=== PATIENT | female | born 1950 | race Caucasian/White ===

== ENCOUNTER 2018-04-11 15:53 | Inpatient (IN) | payer OTHER ==
[~2018-04-11] VITALS: Ht 157.5 cm; Wt 101.2 kg
--- NOTE | 2018-04-11 16:00 | NUR ---
in room being triaged. patient is converasant but expressed depression and has suicidal thoughts.
[2018-04-11 16:38] LABS: BASOPHILS % (AUTO) 0.3 % (0.0-2.0); EOSINOPHILS # (AUTO) 0.3 K/uL (0.0-0.7); EOSINOPHILS % (AUTO) 3.7 % (0.0-7.0); HEMATOCRIT 38.5 % (31.2-41.9); HEMOGLOBIN 12.7 g/dL (10.9-14.3); LYMPHOCYTES # (AUTO) 1.5 K/uL (20.0-40.0); LYMPHOCYTES % (AUTO) 15.9 % (20.5-51.5); MEAN CORPUSCULAR HEMOGLOBIN 29.2 uug (24.7-32.8); MEAN CORPUSCULAR HGB CONC 33 g/dL (32.3-35.6); MEAN CORPUSCULAR VOLUME 88.2 fL (75.5-95.3); MONOCYTES # (AUTO) 0.8 K/uL (2.0-10.0); MONOCYTES % (AUTO) 8.3 % (0.0-11.0); NEUTROPHILS # (AUTO) 6.7 K/uL (1.8-8.9); NEUTROPHILS % (AUTO) 71.8 % (38.5-71.5); PLATELET COUNT (AUTO) 222 K/uL (179-408); RED BLOOD CELL COUNT(AUTO) 4.36 MIL/uL (3.63-4.92); WHITE BLOOD COUNT (AUTO) 9.4 K/uL (3.8-11.8)
[2018-04-11 16:45] LABS: ETHANOL < 3 MG/DL (0-0)
[2018-04-11 16:49] LABS: ALANINE AMINOTRANSFERASE 17 U/L (14-59); ALKALINE PHOSPHATASE 85 U/L (50-136); ASPARTATE AMINOTRANSFERASE 11 U/L (15-37); BILIRUBIN,DIRECT < 0.1 mg/dL (0.0-0.2); BILIRUBIN,TOTAL 0.2 mg/dL (0.2-1.0); CARBON DIOXIDE 28 mmol/L (21-32); CHLORIDE 104 mmol/L (98-107); CREATININE 0.7 mg/dL (0.6-1.3); GLUCOSE 124 mg/dL (74-106); POTASSIUM 4.4 mmol/L (3.5-5.1); TOTAL PROTEIN, SERUM 7.2 g/dL (6.4-8.2); UREA NITROGEN, BLOOD 17 mg/dL (7-18)
[2018-04-11 16:51] LABS: ACETAMINOPHEN < 2.0 ug/mL (10-30)
[2018-04-11] MEDS ORDERED: LORAZEPAM 0.5 MG TABLET PO ONE (18:15)
--- NOTE | 2018-04-11 18:47 | NUR ---
ativan given, dinner served
[2018-04-11] MEDS ORDERED: LORAZEPAM 0.5 MG TABLET ONE (18:50)
--- NOTE | 2018-04-11 19:11 | NUR ---
report given to Norman
--- NOTE | 2018-04-11 20:05 | NUR ---
Pt provided urine, sent to lab.
[2018-04-11] MEDS ORDERED: SULF15DR6 EACHEYE (20:21)
[2018-04-11] MEDS ORDERED: INSU100V7 SQ (20:21)
[2018-04-11] MEDS ORDERED: ALBU18HF2 IH (20:21)
[2018-04-11] MEDS ORDERED: BUPR300T52 PO (20:21)
[2018-04-11] MEDS ORDERED: METF-440 PO (20:21)
[2018-04-11] MEDS ORDERED: GABA-534 PO (20:21)
[2018-04-11] MEDS ORDERED: BUSP5TAB3 PO (20:21)
[2018-04-11] MEDS ORDERED: ALBU8.5H8 IH (20:21)
[2018-04-11] MEDS ORDERED: QUET300T2 PO (20:21)
--- NOTE | 2018-04-11 20:27 | NUR ---
Report given to Cuco YUN MHU.
[2018-04-11 20:39] LABS: *BILIRUBIN,URIN NEGATIVE (NEGATIVE); *BLOOD, URINE Trace-intact (NEGATIVE); *CLARITY,URINE CLEAR (CLEAR); *COLOR,URINE YELLOW (YELLOW); *KETONES,URINE NEGATIVE (NEGATIVE); *PROTEIN,URINE NEGATIVE (NEGATIVE); *UROBILINOGEN,URINE 0.2 E.U./dl (NORMAL); LEUKOCYTE ESTERASE ,URINE NEGATIVE (NEGATIVE); NITRITE, URINE NEGATIVE (NEGATIVE); PH,URINE 7.5 (5.0-8.0); UGLUCOSE NEGATIVE (NEGATIVE)
[2018-04-11] MEDS ORDERED: ZOLPIDEM 5 MG TABLET PO PRN (20:45)
[2018-04-11] MEDS ORDERED: MAG HYDROX/AL HYDROX/SIMETH 30 ML LIQUID UDC PO PRN (20:45)
[2018-04-11] MEDS ORDERED: MORPHINE SULFATE 4 MG/1 ML DISP.SYRIN IM ONE (20:45)
[2018-04-11] MEDS ORDERED: MAGNESIUM HYDROXIDE 30 ML LIQUID UDC PO PRN (20:45)
[2018-04-11 20:47] LABS: *AMPHETAMINE, URINE NEGATIVE (NEGATIVE); *BARBITURATE, URINE NEGATIVE (NEGATIVE); *CANNABINOID, URINE NEGATIVE (NEGATIVE); *COCCAINE, URINE NEGATIVE (NEGATIVE); *OPIATE, URINE NEGATIVE (NEGATIVE); *PHENCYCLIDINE SCREEN,URINE NEGATIVE (NEGATIVE)
[2018-04-11] MEDS ORDERED: MORPHINE SULFATE 4 MG/1 ML DISP.SYRIN ONE (20:49)
[2018-04-11 20:53] LABS: BACTERIA,URINE NONE SEEN /HPF (NONE SEEN); RBC,URINE 0-3 /HPF (0-3); SQUAMOUS EPITHELIAL CELL,UR FEW /HPF (NONE SEEN); WBC,URINE 0-3 /HPF (0-3)
[2018-04-11] MEDS ORDERED: LORAZEPAM 0.5 MG TABLET PO PRN (21:00)
[2018-04-11] MEDS ORDERED: DEXTROSE 50% 50 ML DISP.SYRIN IV PRN (21:15)
[2018-04-11 22:17] VITALS: BP 150/67
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
[2018-04-12] MEDS: BLOOD SUGAR DIAGNOSTIC 1 EACH STRIP VI SCH ×4 (06:35→20:16)
[2018-04-12 07:28] LABS: CREATININE 0.7 mg/dL (0.6-1.3); MAGNESIUM 1.8 mg/dL (1.8-2.4); POTASSIUM 4.7 mmol/L (3.5-5.1)
[2018-04-12 07:30] VITALS: BP 115/63
[2018-04-12] MEDS: GABAPENTIN 300 MG CAPSULE PO SCH ×3 (08:47→17:38)
[2018-04-12] MEDS: METFORMIN HCL 500 MG TABLET PO SCH ×2 (08:47→17:38)
[2018-04-12] MEDS: buPROPion XL 150 MG TAB.SR.24H PO SCH (10:12)
[2018-04-12] MEDS: SULFACETAMIDE SOD 10% OPHT DR 15 ML BOTTLE EACHEYE SCH ×3 (10:12→17:38)
[2018-04-12] MEDS: busPIRone 5 MG TABLET PO SCH ×3 (10:12→17:38)
[2018-04-12 10:14] LABS: THYROID STIMULATING HORMONE 2.976 mIU/mL (0.358-3.740)
--- NOTE | 2018-04-12 15:52 | NUR ---
Firearms Report: Founder & Ceo completed and submitted [employer] Firearms Report on 04/12/18 for 5150 DTS certification.
[2018-04-12 17:24] VITALS: BP_SYST 144; BP_SYST 148; BP_DIAS 64; BP_DIAS 87
[2018-04-12 20:05] VITALS: BP 119/64
[2018-04-12] MEDS: QUETIAPINE FUMARATE 100 MG TABLET PO SCH (20:06)
[2018-04-13] MEDS: BLOOD SUGAR DIAGNOSTIC 1 EACH STRIP VI SCH ×4 (06:37→22:19)
[2018-04-13 07:30] VITALS: BP 104/57
[2018-04-13] MEDS ORDERED: busPIRone 10 MG TABLET PO SCH (09:00)
[2018-04-13] MEDS ORDERED: busPIRone 5 MG TABLET PO SCH (09:00)
[2018-04-13] MEDS: buPROPion XL 150 MG TAB.SR.24H PO SCH (09:04)
[2018-04-13] MEDS: METFORMIN HCL 500 MG TABLET PO SCH ×2 (09:04→17:58)
[2018-04-13] MEDS: GABAPENTIN 300 MG CAPSULE PO SCH ×3 (09:04→17:57)
[2018-04-13] MEDS: SULFACETAMIDE SOD 10% OPHT DR 15 ML BOTTLE EACHEYE SCH ×3 (09:05→17:59)
[2018-04-13] MEDS ORDERED: busPIRone 10 MG TABLET ONE ×2 (09:23→13:18)
--- NOTE | 2018-04-13 10:53 | NUR ---
UR Note: PRASHANTH left clinicals over the phone to assigned [facility] Human Resources Trainer, Lois (ph. [phone]). Policy #[id number]. Awaiting authorization. PRASHANTH will continue to follow-up. Addendum: 04/13/18 at 1606 by ALME REINA Received return call from Lois at [facility]. Patient authorized 4 days (04/11-04/14) with review due on 04/15. AUTH#[id number]. PRASHANTH will continue to follow-up.
--- NOTE | 2018-04-13 11:18 | NUR ---
Initial Discharge Instructions: Patient currently resides in a Condo with a caregiver, "Love" [[address], [place] [address]; [phone]]. Love's phone number is that which is listed above; however, patient did not provide consent for SS to speak with Love. Patient reports that she would like to return to the condo upon discharge. Spoke with patient's daughter/DPOA, Apolonia Hammond ([phone]) who confirmed that the patient is living with Love. SW will continue to collaborate with pt, family, and MD to discuss most appropriate discharge plans for this patient. SW will form a safe and proper discharge.
--- NOTE | 2018-04-13 11:19 | NUR ---
Rn Stars Note: Received email from patient's dtr, Apolonia ([phone]), and was provided with DPOA paperwork. Placed copy in paper chart.
[2018-04-13] MEDS: ACETAMINOPHEN 325 MG TABLET PO PRN ×2 (14:12→23:26)
[2018-04-13] MEDS ORDERED: ACETAMINOPHEN 325 MG TABLET ONE (14:13)
[2018-04-13 16:12] VITALS: BP 113/60
[2018-04-13] MEDS: busPIRone 10 MG TABLET PO SCH (17:59)
[2018-04-13 19:33] VITALS: BP 111/52
[2018-04-13] MEDS: ASPIRIN/ACETAMINOPHEN/CAFFEINE TABLET PO PRN (22:14)
[2018-04-13] MEDS: QUETIAPINE FUMARATE 100 MG TABLET PO SCH (22:14)
[2018-04-13] MEDS: INSULIN REGULAR, HUMAN 300 UNIT/3 ML VIAL SQ PRN (22:27)
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
[2018-04-14] MEDS: BLOOD SUGAR DIAGNOSTIC 1 EACH STRIP VI SCH ×4 (07:00→20:24)
[2018-04-14 07:30] VITALS: BP 129/69
[2018-04-14] MEDS: METFORMIN HCL 500 MG TABLET PO SCH ×2 (09:19→17:39)
[2018-04-14] MEDS: SULFACETAMIDE SOD 10% OPHT DR 15 ML BOTTLE EACHEYE SCH ×3 (09:20→17:38)
[2018-04-14] MEDS: buPROPion XL 150 MG TAB.SR.24H PO SCH (09:20)
[2018-04-14] MEDS: busPIRone 10 MG TABLET PO SCH (09:20)
[2018-04-14] MEDS: GABAPENTIN 300 MG CAPSULE PO SCH ×3 (09:20→17:39)
[2018-04-14] MEDS: QUETIAPINE FUMARATE 25 MG TABLET PO SCH ×2 (13:08→17:40)
[2018-04-14] MEDS: HYDROCODONE/APAP 5-325MG TABLET PO PRN (14:11)
[2018-04-14] MEDS: HYDROXYZINE PAMOATE 25 MG CAPSULE PO PRN (14:13)
--- NOTE | 2018-04-14 19:40 | NUR ---
RECEIVED PATIENT IN HER ROOM. SHE IS NOTED AWAKE A/O X 2/3. SHE IS ABLE TO AMBULATE WITH A FWW AND ABLE TO MAKE HER NEEDS KNOWN. PATIENT NOTED WITH LOW MOOD, BLUNTED AFFECT, FAIR INSIGHT, SHE IS ABLE TO VERBALIZED FEELINGS. SHE DENIES SI. DENIES AH/VH. SHE IS ABLE TO CFS. SAFETY WAS EMPHASIS, BED AT LOWEST POSITION WITH WHEELS LOCKED, ALARM ON AND FREQUENT HEAD CHECKS. WILL CONTINUE TO MONITOR.
[2018-04-14 20:00] VITALS: BP 121/80
[2018-04-14] MEDS: QUETIAPINE FUMARATE 100 MG TABLET PO SCH (20:24)
[2018-04-15] MEDS: BLOOD SUGAR DIAGNOSTIC 1 EACH STRIP VI SCH ×4 (07:31→20:09)
[2018-04-15] MEDS: SULFACETAMIDE SOD 10% OPHT DR 15 ML BOTTLE EACHEYE SCH ×3 (08:18→16:32)
[2018-04-15] MEDS: METFORMIN HCL 500 MG TABLET PO SCH ×2 (08:18→17:34)
[2018-04-15] MEDS: GABAPENTIN 300 MG CAPSULE PO SCH ×3 (08:18→16:32)
[2018-04-15] MEDS: buPROPion XL 150 MG TAB.SR.24H PO SCH (08:19)
[2018-04-15] MEDS: QUETIAPINE FUMARATE 25 MG TABLET PO SCH ×3 (08:19→16:32)
[2018-04-15 08:37] VITALS: BP 115/65
[2018-04-15] MEDS: HYDROCODONE/APAP 5-325MG TABLET PO PRN ×2 (10:23→23:09)
--- NOTE | 2018-04-15 12:25 | NUR ---
UR Note: Left clinical review on voicemail of Yumiko at [employer] [phone]. Requested authorization through the weekend. Provided current meds., patient's behavior and psychiatry notes from Dr Alonso. Advised that this technical writer is just covering for Lynda today.
[2018-04-15 14:42] VITALS: BP 121/83
--- NOTE | 2018-04-15 14:53 | NUR ---
UR Note: Patient's stay was authorized until 04/18/18 by Yumiko [facility] [place] ([phone]) with a review due that day. Lynda is aware and will follow up. Ref no: [id number]
--- NOTE | 2018-04-15 19:20 | NUR ---
RECEIVED PATIENT IN HER ROOM. AWAKE A/O X 2/3. IN NO ACUTE DISTRESS. SHE IS ABLE TO AMBULATE WITH A FWW AND ABLE TO MAKE HER NEEDS KNOWN. PATIENT WITH LOW MOOD, BLUNTED AFFECT, FAIR INSIGHT, SHE IS ABLE TO VERBALIZED FEELINGS. SHE DENIES SI. DENIES AH/VH. SHE IS ABLE TO CFS. CALM AND COOPERATIVE WITH CARE. SAFETY MEASURE INITIATED.
[2018-04-15 20:00] VITALS: BP 118/65
[2018-04-15] MEDS: QUETIAPINE FUMARATE 100 MG TABLET PO SCH (20:03)
[2018-04-15 22:14] LABS: *BILIRUBIN,URIN NEGATIVE (NEGATIVE); *BLOOD, URINE NEGATIVE (NEGATIVE); *CLARITY,URINE CLEAR (CLEAR); *COLOR,URINE YELLOW (YELLOW); *KETONES,URINE NEGATIVE (NEGATIVE); *PROTEIN,URINE NEGATIVE (NEGATIVE); *UROBILINOGEN,URINE 0.2 E.U./dl (NORMAL); LEUKOCYTE ESTERASE ,URINE NEGATIVE (NEGATIVE); NITRITE, URINE NEGATIVE (NEGATIVE); UGLUCOSE NEGATIVE (NEGATIVE)
[2018-04-15 22:21] LABS: MUCUS,URINE FEW /LPF (0-FEW); SQUAMOUS EPITHELIAL CELL,UR MODERATE /HPF (NONE SEEN); WBC,URINE 0-3 /HPF (0-3)
--- NOTE | 2018-04-15 23:10 | NUR ---
Complained of pain on her head and right side of her face. Hydrocodone PRN per order given.
[2018-04-16] MEDS: HYDROXYZINE PAMOATE 25 MG CAPSULE PO PRN (01:34)
--- NOTE | 2018-04-16 01:34 | NUR ---
Patient restless, unable to sleep. Offered Vistaril and patient agreeable. Vistaril PRN per order given. Other needs attended to and met.
[2018-04-16] MEDS: BLOOD SUGAR DIAGNOSTIC 1 EACH STRIP VI SCH ×4 (06:33→20:17)
[2018-04-16] MEDS ORDERED: Z GUARD REMEDY PASTE 57 GM TUBE TOP PRN (06:45)
[2018-04-16 07:30] VITALS: BP 96/51
[2018-04-16] MEDS: GABAPENTIN 300 MG CAPSULE PO SCH ×3 (08:07→16:07)
[2018-04-16] MEDS: buPROPion XL 150 MG TAB.SR.24H PO SCH (08:07)
[2018-04-16] MEDS: QUETIAPINE FUMARATE 25 MG TABLET PO SCH ×3 (08:08→16:07)
[2018-04-16] MEDS: SULFACETAMIDE SOD 10% OPHT DR 15 ML BOTTLE EACHEYE SCH ×3 (08:08→16:06)
[2018-04-16] MEDS: METFORMIN HCL 500 MG TABLET PO SCH ×2 (08:08→17:26)
[2018-04-16] MEDS: INSULIN REGULAR, HUMAN 300 UNIT/3 ML VIAL SQ PRN ×3 (11:23→20:21)
[2018-04-16] MEDS: HYDROCODONE/APAP 5-325MG TABLET PO PRN ×2 (12:28→20:11)
[2018-04-16 15:34] VITALS: BP 96/51
--- NOTE | 2018-04-16 19:20 | NUR ---
RECEIVED PATIENT AMBULATING IN THE HALLWAY WITH FWW, WENT TO HER ROOM AND SAT ON HER BED. AOX 2-3. IN NO ACUTE DISTRESS. PATIENT VERBALIZED STILL FEELING DEPRESS AND HAVING LOW MOOD. FAIR INSIGHT, SHE IS ABLE TO VERBALIZED FEELINGS. SHE VAGUELY VERBALIZED THAT SHE STILL THINK OF COMMITTING SUICIDE. NO PLAN ON ACTUALLY DOING IT. SHE IS ABLE TO CFS. DENIES AH/VH. CALM AND COOPERATIVE WITH CARE. SAFETY MEASURE INITIATED. CONTINUE TO MONITOR.
[2018-04-16] MEDS: QUETIAPINE FUMARATE 100 MG TABLET PO SCH (20:10)
[2018-04-16 20:15] VITALS: BP 143/85
[2018-04-17] MEDS: BLOOD SUGAR DIAGNOSTIC 1 EACH STRIP VI SCH ×4 (06:35→20:38)
[2018-04-17 08:00] VITALS: BP 99/62
[2018-04-17] MEDS: GABAPENTIN 300 MG CAPSULE PO SCH ×3 (08:29→17:08)
[2018-04-17] MEDS: METFORMIN HCL 500 MG TABLET PO SCH ×2 (08:29→17:08)
[2018-04-17] MEDS: buPROPion XL 150 MG TAB.SR.24H PO SCH (08:29)
[2018-04-17] MEDS: QUETIAPINE FUMARATE 25 MG TABLET PO SCH ×3 (08:29→17:08)
[2018-04-17] MEDS: SULFACETAMIDE SOD 10% OPHT DR 15 ML BOTTLE EACHEYE SCH ×3 (08:30→17:08)
[2018-04-17] MEDS: HYDROCODONE/APAP 5-325MG TABLET PO PRN ×2 (08:37→15:31)
[2018-04-17 16:00] VITALS: BP 108/52
[2018-04-17] MEDS: INSULIN REGULAR, HUMAN 300 UNIT/3 ML VIAL SQ PRN (17:17)
[2018-04-17] MEDS: HYDROXYZINE PAMOATE 25 MG CAPSULE PO PRN (18:57)
[2018-04-17] MEDS: ASPIRIN/ACETAMINOPHEN/CAFFEINE TABLET PO PRN (18:57)
[2018-04-17 20:00] VITALS: BP 110/56
[2018-04-17] MEDS: QUETIAPINE FUMARATE 100 MG TABLET PO SCH (21:48)
--- NOTE | 2018-04-18 04:10 | NUR ---
Received to care, pt in bed talking to her roommate, pt state that she is in pain and has SOB, pt directed to sit up instead of laying down so much, pt complied with taking medication, pt refused tylenol and asked to receive 10/325 order of [place] instead of 5/325. Pt also requested that she receive albuterol for her asthma, copy writer informed her that I would pass the message along to day shift or MD. Pt went to sleep.
[2018-04-18 05:25] LABS: *BILIRUBIN,URIN NEGATIVE (NEGATIVE); *BLOOD, URINE NEGATIVE (NEGATIVE); *CLARITY,URINE CLEAR (CLEAR); *COLOR,URINE YELLOW (YELLOW); *KETONES,URINE NEGATIVE (NEGATIVE); *PROTEIN,URINE NEGATIVE (NEGATIVE); *UROBILINOGEN,URINE 0.2 E.U./dl (NORMAL); LEUKOCYTE ESTERASE ,URINE NEGATIVE (NEGATIVE); NITRITE, URINE NEGATIVE (NEGATIVE); PH,URINE 5.5 (5.0-8.0); UGLUCOSE NEGATIVE (NEGATIVE)
[2018-04-18 05:42] LABS: BACTERIA,URINE NONE SEEN /HPF (NONE SEEN); RBC,URINE NONE SEEN /HPF (0-3); SQUAMOUS EPITHELIAL CELL,UR FEW /HPF (NONE SEEN); WBC,URINE 0-3 /HPF (0-3)
[2018-04-18] MEDS: BLOOD SUGAR DIAGNOSTIC 1 EACH STRIP VI SCH ×2 (06:54→11:55)
[2018-04-18 07:30] VITALS: BP 131/63
[2018-04-18] MEDS ORDERED: IBUPROFEN 200 MG TABLET PO PRN (09:00)
[2018-04-18] MEDS: buPROPion XL 150 MG TAB.SR.24H PO SCH (09:38)
[2018-04-18] MEDS: METFORMIN HCL 500 MG TABLET PO SCH ×2 (09:38→17:24)
[2018-04-18] MEDS: GABAPENTIN 300 MG CAPSULE PO SCH ×4 (09:38→20:46)
[2018-04-18] MEDS: SULFACETAMIDE SOD 10% OPHT DR 15 ML BOTTLE EACHEYE SCH ×3 (09:38→17:24)
[2018-04-18] MEDS: QUETIAPINE FUMARATE 25 MG TABLET PO SCH ×3 (09:39→17:24)
--- NOTE | 2018-04-18 10:15 | NUR ---
UR Note: SW left clinicals over voicemail to [employer] CounselorLois (ph [phone]). Requested further authorization for stay. Requested information regarding SNF placement as well (Per Dr. Alonso's recommendations). AUTH#[id number]. Awaiting authorization. SW will continue to follow-up. Addendum: 04/18/18 at 1305 by ALEM REINA Received call from [employer] CounselorLois. Patient authorized 3 additional days (04/18-04/20) with review due on 04/21. Per Lois, this brief writer was instructed to callDanielle in the Transitional Care Department ([phone]) for SNF auth. Spoke with Danielle who will reach out to her team to start SNF authorization process. PRASHANTH will continue to follow-up.
[2018-04-18] MEDS: INSULIN REGULAR, HUMAN 300 UNIT/3 ML VIAL SQ PRN (11:55)
[2018-04-18] MEDS ORDERED: INSULIN REGULAR, HUMAN 300 UNIT/3 ML VIAL SQ PRN (14:30)
[2018-04-18] MEDS: ACETAMINOPHEN 325 MG TABLET PO PRN (15:18)
[2018-04-18 16:35] VITALS: BP 101/48
[2018-04-18] MEDS: HYDROXYZINE PAMOATE 25 MG CAPSULE PO PRN (17:24)
--- NOTE | 2018-04-18 17:35 | NUR ---
Patient crying and claims she is depressed. Has thoughts of suicide but no definite plan. She said she awas upset with taking her off [place]. Vistaril PRN given
[2018-04-18 19:30] VITALS: BP 138/84
[2018-04-18] MEDS: QUETIAPINE FUMARATE 100 MG TABLET PO SCH (20:46)
[2018-04-19 07:30] VITALS: BP 113/58
[2018-04-19] MEDS ORDERED: BLOOD SUGAR DIAGNOSTIC 1 EACH STRIP VI SCH ×2 (07:30→09:00)
[2018-04-19] MEDS: QUETIAPINE FUMARATE 25 MG TABLET PO SCH (08:19)
[2018-04-19] MEDS: METFORMIN HCL 500 MG TABLET PO SCH ×2 (08:19→17:01)
[2018-04-19] MEDS: buPROPion XL 150 MG TAB.SR.24H PO SCH ×2 (08:19→09:46)
[2018-04-19] MEDS: GABAPENTIN 300 MG CAPSULE PO SCH ×4 (08:19→21:29)
[2018-04-19] MEDS: SULFACETAMIDE SOD 10% OPHT DR 15 ML BOTTLE EACHEYE SCH ×3 (08:22→17:02)
[2018-04-19] MEDS: PAROXETINE HCL 20 MG TABLET PO SCH (09:46)
[2018-04-19] MEDS: HYDROXYZINE PAMOATE 25 MG CAPSULE PO PRN (09:50)
[2018-04-19] MEDS: ACETAMINOPHEN 325 MG TABLET PO PRN ×2 (12:05→22:22)
--- NOTE | 2018-04-19 12:08 | NUR ---
UR Note: Follow-up call made to Danielle in the Transitional Care Department ([phone]) for SNF auth. Per Danielle, assigned case folder will be contacting this global technical writer to being SNF placement process. SW will continue to follow-up. Addendum: 04/19/18 at 1425 by ALEM REINA SW PRASHANTH received call from Hilda Chase ([phone]). Per Hilda, pt's IPA would need to provide SNF authorization. Placed call to Deborah at [facility] (ph. [phone]; fax [phone]) and faxed PT eval, H&P, and face sheet. Awaiting authorization for SNF placement. SW will continue to follow-up.
--- NOTE | 2018-04-19 14:31 | NUR ---
Discharge Planning Note: Spoke with patient's childcare attendant, Love ([phone]) to discuss discharge planning. Informed Love of attempts to find SNF placement for patient temporarily. Love aware and agreeable. Per Love, the patient will be able to return to her home [[address], [place] [address]] if SNF is not authorized. SW will continue to follow-up.
[2018-04-19 16:20] VITALS: BP 115/97
[2018-04-19 19:30] VITALS: BP 139/59
[2018-04-19] MEDS ORDERED: QUETIAPINE FUMARATE 100 MG TABLET PO SCH (21:00)
[2018-04-19] MEDS: QUETIAPINE FUMARATE 200 MG TABLET PO SCH (21:29)
[2018-04-20 07:30] VITALS: BP 115/42
[2018-04-20] MEDS: PAROXETINE HCL 20 MG TABLET PO SCH (08:22)
[2018-04-20] MEDS: METFORMIN HCL 500 MG TABLET PO SCH ×2 (08:22→17:30)
[2018-04-20] MEDS: GABAPENTIN 300 MG CAPSULE PO SCH ×4 (08:22→21:02)
[2018-04-20] MEDS: SULFACETAMIDE SOD 10% OPHT DR 15 ML BOTTLE EACHEYE SCH ×3 (08:22→17:31)
[2018-04-20] MEDS: buPROPion XL 150 MG TAB.SR.24H PO SCH (08:23)
[2018-04-20] MEDS: ACETAMINOPHEN 325 MG TABLET PO PRN ×2 (11:48→21:03)
[2018-04-20] MEDS: HYDROXYZINE PAMOATE 25 MG CAPSULE PO PRN (15:44)
[2018-04-20 16:16] VITALS: BP 127/81
--- NOTE | 2018-04-20 18:20 | NUR ---
PATIENT COMPLAINTS OF PAIN IN RIGHT SHOULDER, SEAM RUBBING MACHINE OPERATOR GWEN NOTIFIED OF FINDINGS WITH ORDER FOR RIGHT SHOULDER X-RAY
[2018-04-20 19:30] VITALS: BP 115/70
[2018-04-20] MEDS: QUETIAPINE FUMARATE 200 MG TABLET PO SCH (21:01)
--- NOTE | 2018-04-21 06:48 | NUR ---
Received pt to care, pt pleasant, cooperative, pt c/o SOB, needy, demanding, pt showing a pattern of req what roommate receives (req x-ray, breathing tx's, etc). Pt complied with taking meds, pt incontinent, pt slept well throughout the night.
[2018-04-21 07:30] VITALS: BP 117/57
[2018-04-21] MEDS: METFORMIN HCL 500 MG TABLET PO SCH ×2 (08:27→17:05)
[2018-04-21] MEDS: PAROXETINE HCL 20 MG TABLET PO SCH (08:27)
[2018-04-21] MEDS: buPROPion XL 150 MG TAB.SR.24H PO SCH (08:27)
[2018-04-21] MEDS: GABAPENTIN 300 MG CAPSULE PO SCH ×4 (08:27→20:05)
[2018-04-21] MEDS: SULFACETAMIDE SOD 10% OPHT DR 15 ML BOTTLE EACHEYE SCH ×3 (08:28→17:01)
[2018-04-21] MEDS: ACETAMINOPHEN 325 MG TABLET PO PRN (08:40)
--- NOTE | 2018-04-21 08:51 | NUR ---
Pt stated that she had discomfort in her chest area due to acid reflex. Pt also stated she had a headache 10/09. Tylenol given as requested by the patient
--- NOTE | 2018-04-21 10:41 | NUR ---
UR Note: direct support worker received phone call from Hilda ([phone]), [place], inquiring about status of SNF authorization (see note from 03/19/2018). direct support worker followed up with Deborah (ph. [phone]; fax [phone]) at [facility] and left a voicemail at 10:40am asking for update on SNF authorization. direct support worker awaiting call back.
--- NOTE | 2018-04-21 13:47 | NUR ---
UR Note: Left clinical review for Latasha at [phone] reference number : [id number]. Also requested in network home health referrals for patient. asphalt worker left a message for Deborah at [phone] to follow up on retirement options that had been discussed by Lynda. Will await call back.
--- NOTE | 2018-04-21 16:04 | NUR ---
UR Note: Latasha at [facility] [phone] authorized 4 days with a review on 04/25/18. client development manager will be Lois again starting on 04/25/18 and her direct number is [phone]. Natividad aftercare coordinator ([phone]) will provide outpatient referrals for pt. Message was left for Natividad to begin coordinating outpt. referrals for pt. Isela is working with Deborah and will arrange home health for patient.
[2018-04-21 16:15] VITALS: BP 149/75
--- NOTE | 2018-04-21 16:20 | NUR ---
Discharge Planning Note: Spoke with Love, patients' caregiver [phone] and advised her that pt. will most likely be coming home early next week and possibly even Wednesday. She is prepared and has been with this patient for 7 years. Love says pt. has an appointment with her PMD, Dr Taveras on 04/26/18 at 1030. Spoke with Natividad [facility] vocational childcare teacher [phone]. She will schedule appointments with outpatient mental health providers and fax to this copy writer. Pt. has also been a patient at [facility]. Isela GARCIA is coordinating home health follow up for this pt.
--- NOTE | 2018-04-21 17:01 | NUR ---
UR Note: vineyard worker faxed MD order for home health services to Deborah at [facility] [[phone]; fax: [phone]]; confirmation received at 16:59. Deborah also provided a list of HH agencies to contact that are within network and they are as follows: [facility] ([phone]], [facility] [[phone]], [facility] [[phone]], and [facility] [[phone]]. vineyard worker will reach out to facilities.
--- NOTE | 2018-04-21 17:20 | NUR ---
Gps/Death Clearance Coordinator- Needed prompting and encouragement in initiating simple tasks, Complained of increased coughing , none noted. 02 sat. adequate 95% . No SOB noted.
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
[2018-04-21] MEDS: QUETIAPINE FUMARATE 200 MG TABLET PO SCH (20:06)
[2018-04-21 20:33] VITALS: BP 124/79
[2018-04-22 07:30] VITALS: BP 107/46
[2018-04-22] MEDS: METFORMIN HCL 500 MG TABLET PO SCH ×2 (08:01→17:16)
[2018-04-22] MEDS: PAROXETINE HCL 10 MG TABLET PO SCH (08:01)
[2018-04-22] MEDS: GABAPENTIN 300 MG CAPSULE PO SCH ×4 (08:01→20:15)
[2018-04-22] MEDS: SULFACETAMIDE SOD 10% OPHT DR 15 ML BOTTLE EACHEYE SCH ×3 (08:02→16:06)
[2018-04-22] MEDS ORDERED: PAROXETINE HCL 20 MG TABLET PO SCH (09:00)
[2018-04-22] MEDS: ACETAMINOPHEN 325 MG TABLET PO PRN (16:06)
--- NOTE | 2018-04-22 16:26 | NUR ---
UR Note: outreach worker faxed HH order to [facility] [ph: [phone]; fax; [phone]], who are a referred agency by [employer]. Per [facility] sales operations coordinatorHalina, patient has been accepted. outreach worker received authorization number [[id number]] for home health services from [facility] pillowcase cutter, Margie [[phone]]. outreach worker faxed authorization to [facility].
[2018-04-22 16:35] VITALS: BP 124/49
[2018-04-22 20:00] VITALS: BP 128/67
[2018-04-22] MEDS: QUETIAPINE FUMARATE 200 MG TABLET PO SCH (20:16)
--- NOTE | 2018-04-23 06:49 | NUR ---
PT SLEPT THROUGHOUT THE SHIFT. PT SLEPT SEVEN HOURS. PT SHOWS NO SIGNS OF DISTRESS. PT COOPERATIVE WITH CARE.PT SHOWS NO SIGNS OF HARMING HERSELF. PLEASANT WHEN APPROACHED AND INTERACT WHEN APPROACHED. SAFETY AND COMFORT PROVIDED. ALL NEEDS ARE MET.WILL ENDORSE TO DAYSOHFT NURSE FOR CONTINUITY OF CARE.
[2018-04-23 07:30] VITALS: BP 110/54
--- NOTE | 2018-04-23 07:30 | NUR ---
Recieved pt sitted up in bed and eating her breakfast well. Awake, alert and orientedx3. Compliant and in good spirit. Pt ambulates using a walker.
[2018-04-23] MEDS: GABAPENTIN 300 MG CAPSULE PO SCH ×4 (08:34→20:36)
[2018-04-23] MEDS: PAROXETINE HCL 10 MG TABLET PO SCH (08:34)
[2018-04-23] MEDS: SULFACETAMIDE SOD 10% OPHT DR 15 ML BOTTLE EACHEYE SCH ×3 (08:35→16:36)
[2018-04-23] MEDS: METFORMIN HCL 500 MG TABLET PO SCH ×2 (08:37→17:11)
--- NOTE | 2018-04-23 09:00 | NUR ---
Seen and examined by Chris CREW SCHEDULER with new orders. Pt medicated with Rubitussin for her cough as requested.
[2018-04-23] MEDS: ACETAMINOPHEN 325 MG TABLET PO PRN ×2 (09:31→20:42)
[2018-04-23] MEDS ORDERED: PNEUMOCOCCAL 23-VAL P-SAC VAC 0.5 ML VIAL IM ONE (12:00)
[2018-04-23] MEDS: GUAIFENESIN SUGAR FREE 100 MG/5 ML UDC PO PRN ×2 (12:55→22:27)
--- NOTE | 2018-04-23 13:00 | NUR ---
Stayed up in the recreation room and participated in the activity.
[2018-04-23 17:31] VITALS: BP 139/67
[2018-04-23 20:03] VITALS: BP 135/65
[2018-04-23] MEDS: QUETIAPINE FUMARATE 200 MG TABLET PO SCH (20:36)
[2018-04-24 07:51] VITALS: BP 98/56
[2018-04-24] MEDS: METFORMIN HCL 500 MG TABLET PO SCH ×2 (08:43→17:45)
[2018-04-24] MEDS: PAROXETINE HCL 10 MG TABLET PO SCH (08:43)
[2018-04-24] MEDS: SULFACETAMIDE SOD 10% OPHT DR 15 ML BOTTLE EACHEYE SCH ×3 (08:43→17:45)
[2018-04-24] MEDS: GABAPENTIN 300 MG CAPSULE PO SCH ×4 (08:43→20:36)
[2018-04-24] MEDS: GUAIFENESIN SUGAR FREE 100 MG/5 ML UDC PO PRN (08:43)
[2018-04-24 15:17] VITALS: BP 133/66
[2018-04-24] MEDS: ACETAMINOPHEN 325 MG TABLET PO PRN (17:45)
[2018-04-24 20:00] VITALS: BP_SYST 111; BP_SYST 133; BP_DIAS 58; BP_DIAS 64
[2018-04-24] MEDS: QUETIAPINE FUMARATE 200 MG TABLET PO SCH (20:36)
[2018-04-25 07:30] VITALS: BP 103/48
[2018-04-25] MEDS: PAROXETINE HCL 20 MG TABLET PO SCH (08:39)
[2018-04-25] MEDS: GABAPENTIN 300 MG CAPSULE PO SCH ×4 (08:39→20:21)
[2018-04-25] MEDS: METFORMIN HCL 500 MG TABLET PO SCH ×2 (08:40→17:16)
[2018-04-25] MEDS: ACETAMINOPHEN 325 MG TABLET PO PRN (09:47)
--- NOTE | 2018-04-25 09:54 | NUR ---
Discharge Note: Patient will be discharged back home with her caregiver [[address] , [place] [address]; [phone]] via taxi. Spoke with patients caregiver, Love ([phone]) who is aware and agreeable with discharge plans. Left message for patients daughter, Apolonia ([phone]) to alert about patients discharge. Patient is aware and agreeable with discharge plans. Patient will follow-up with her Primary Care Physician, Dr. Anil Miles on 04/29/18 at 9:15am [[address] [place], [place]; ]. Patient was also provided with aftercare appointments from her HMO. Patient has a scheduled appointment with Dr. Richie Burciaga (Psychiatrist) on 05/02/18 at 1:00pm [[address] [place] [address]; [phone]]. Patient also has a scheduled appointment for individual therapy with Paula Metcalf LCSW on 05/12/18 at 10:30am [[address], [address] [place] [address]; [phone]]. A Home Health order for medication management and nursing evaluation was faxed to [facility] (ph. [phone]; fax [phone]) Auth# [id number]. Spoke with Halina in intake who states that patient was accepted with a Start of Care on 04/26/18. For smoking cessation, patient was referred to [employer] 800-LUNGUSA and [employer] [phone]. Patient was provided with outpatient mental health resources to [facility] Crisis Line , Kyleigh Ivy , and the National Suicide Prevention Lifeline . Addendum: 04/25/18 at 1038 by MICHEL MOSLEY, ALEM SW Consulted with Dr. Johnson, and patient will DC tomorrow (04/26/18)
[2018-04-25] MEDS: GUAIFENESIN SUGAR FREE 100 MG/5 ML UDC PO PRN (10:20)
--- NOTE | 2018-04-25 12:47 | NUR ---
UR Note: PRASHANTH left clinical review for [facility] College Advisor, Lois ([phone]). AUTH#[id number]. Informed Lois of plan to DC patient tomorrow (04/26/18). PRASHANTH will continue to follow-up. Addendum: 04/25/18 at 1533 by ALEM REINA Received call back from Lois. Patient authorized 1 additional day (04/25/18) with review/DC on 04/26/18. PRASHANTH will continue to follow-up.
[2018-04-25] MEDS: HYDROXYZINE PAMOATE 25 MG CAPSULE PO PRN (15:05)
[2018-04-25 16:00] VITALS: BP 118/43
[2018-04-25] MEDS: QUETIAPINE FUMARATE 200 MG TABLET PO SCH (20:21)
[2018-04-26 07:30] VITALS: BP 125/67
[2018-04-26] MEDS: METFORMIN HCL 500 MG TABLET PO SCH (08:36)
[2018-04-26] MEDS: PAROXETINE HCL 20 MG TABLET PO SCH (08:36)
[2018-04-26] MEDS: GABAPENTIN 300 MG CAPSULE PO SCH ×2 (08:37→12:18)
--- NOTE | 2018-04-26 09:53 | NUR ---
UPDATED DC NOTE: Patient will be discharged back home with her caregiver [[address] , [place] [address]; [phone]] via taxi at 2pm. Spoke with patients caregiver, Love ([phone]) who is aware and agreeable with discharge plans. Left message for patients daughter, Apolonia ([phone]) to alert about patients discharge. Patient is aware and agreeable with discharge plans and denies SI. Patient will follow-up with her Primary Care Physician, Dr. nAil Miles on 04/29/18 at 9:15am [[address] [place], [place]; ]. Patient was also provided with aftercare appointments from her HMO. Patient has a scheduled appointment with Dr. Richie Burciaga (Psychiatrist) on 05/02/18 at 1:00pm [[address] [place] [address]; [phone]]. Patient also has a scheduled appointment for individual therapy with Paula Metcalf LCSW on 05/12/18 at 10:30am [[address] [facility], [address] [place] [address]; [phone]]. A Home Health order for medication management and nursing evaluation was faxed to [facility] (ph. [phone]; fax [phone]) Auth# [id number]. Spoke with Halina in intake who states that patient was accepted with a Start of Care on 04/27/18. For smoking cessation, patient was referred to [employer] 800-LUNGUSA and [employer] [phone]. Patient was provided with outpatient mental health resources to [facility] Crisis Line , Kyleigh Ivy , and the National Suicide Prevention Lifeline .
--- NOTE | 2018-04-26 14:30 | NUR ---
GPS: Nursing Notes: Discharge Notes: Patient is awake and responding to her name, cooperative with nursing care, following staff directions, compliant with her medications, denies any SI/HI, denies any AH/VH, denies any pain or discomfort, denies any SOB, discharge home with caregiver - Love at [address] , [place] [address], social media senior associate informed patient's daughter - Apolonia of discharge plans. Transported via [employer] to her house. Patient will follow-up with her Primary Care Physician, Dr. Anil Miles on 04/29/18 at 9:15am [[address], [place]; ]. Patient was also provided with aftercare appointments from her HMO. Patient has a scheduled appointment with Dr. Richie Burciaga (Psychiatrist) on 05/02/18 at 1:00pm [[address] [place] [address]; [phone]]. Patient also has a scheduled appointment for individual therapy with Paula Metcalf LCSW on 05/12/18 at 10:30am [[address] [facility], [address] [place] [address]; [phone]]. A Home Health order for medication management and nursing evaluation was faxed to [facility] (ph. [phone]; fax [phone]) Auth# [id number]. Spoke with Halina in intake who states that patient was accepted with a Start of Care on 04/27/18. For smoking cessation, patient was referred to [employer] 800-LUNGUSA and [employer] [phone]. Patient was provided with outpatient mental health resources to [facility] Crisis Line , Kyleigh Ivy , and the National Suicide Prevention Lifeline .
== END 2018-04-26 14:30 | disposition home health service (06) | DRG 885 ==
LOC: ER 15:54 → GPS 20:30
PROVIDERS: ADMIT Psychiatry & Neurology Psychiatry; ATTEND Internal Medicine
DX: F33.3 Major depressive disorder, recurrent, severe with psychotic symptoms (principal); R45.851 Suicidal ideations; E44.0 Moderate protein-calorie malnutrition; N39.0 Urinary tract infection, site not specified; Z68.41 Body mass index [BMI] 40.0-44.9, adult; E11.9 Type 2 diabetes mellitus without complications; F41.9 Anxiety disorder, unspecified; F17.210 Nicotine dependence, cigarettes, uncomplicated; I10 Essential (primary) hypertension; Z88.0 Allergy status to penicillin; Z88.2 Allergy status to sulfonamides; S00.81XA Abrasion of other part of head, initial encounter; X58.XXXA Exposure to other specified factors, initial encounter; Y92.89 Other specified places as the place of occurrence of the external cause; F29 Unspecified psychosis not due to a substance or known physiological condition; Z79.84 Long term (current) use of oral hypoglycemic drugs; E66.01 Morbid (severe) obesity due to excess calories; Y04.0XXA Assault by unarmed brawl or fight, initial encounter; Y92.830 Public park as the place of occurrence of the external cause
CPT/HCPCS: 36415; 71045; 73030; 73620; 80307; 82306; 83735; 84100; 84443; 85025; 85730; 87086; 90732; 93005; 97110; 97116; 97530; A4663; A9150; G0480; G0480-TC; J1815; J2270